=== PATIENT | female | born 1985 | race Caucasian/White ===

== ENCOUNTER → 2019-05-08 | Outpatient (CLI) | payer OTHER ==
[2019-05-08 10:26] LABS: BASOPHIL % 0.2 % (0-2); PLATELET COUNT 201 x10^3mcL (130-400); RED CELL DISTRIBUTION WIDTH 13.3 % (11.5-14.5)
[2019-05-08 10:32] LABS: ALBUMIN 3.7 g/dL (3.4-5.0); ALKALINE PHOSPHATASE 33 U/L (46-116); ALT/SGPT 21 U/L (14-59); AST/SGOT 10 U/L (15-37); BILIRUBIN TOTAL 0.4 mg/dL (0.20-1.00); CALCIUM 8.6 mg/dL (8.5-10.1); CARBON DIOXIDE 25.5 mmol/L (21-32); CHLORIDE SERUM 106 mmol/L (98-107); CHOLESTEROL 189 mg/dL (<200); CHOLESTEROL/HDL RATIO 3.1; CREATININE SERUM 0.7 mg/dL (0.6-1.0); FREE T4 1.01 ng/dL (0.76-1.46); GFR1 > 60 mL/min; GLUCOSE SERUM 92 mg/dL (74-106); HDL CHOLESTEROL 61 mg/dL (40-60); POTASSIUM SERUM 4.3 mmol/L (3.5-5.1); SODIUM SERUM 139 mmol/L (136-145); TOTAL PROTEIN, SERUM 6.9 g/dL (6.4-8.2); TRIGLYCERIDES 71 mg/dL (<150)
[2019-05-08 11:03] LABS: UA SPECIFIC GRAVITY 1.015 (1.005-1.035); microscopic required? YES; urine erythrocyte NEGATIVE (NEGATIVE)
== END | disposition home or self-care (01) ==
LOC: LB 09:45
PROVIDERS: Obstetrics & Gynecology
DX: Z00.00 Encounter for general adult medical examination without abnormal findings (principal); Z87.59 Personal history of other complications of pregnancy, childbirth and the puerperium
CPT/HCPCS: 84439

== ENCOUNTER 2019-07-24 15:21 | Emergency (ER) | payer OTHER, SELFPAY ==
[~2019-07-24] VITALS: Ht 162.6 cm; Wt 63.5 kg
[2019-07-24 15:40] VITALS: BP 114/72
== END 2019-07-24 16:52 | disposition home or self-care (01) ==
LOC: ED 15:21
DX: O99.512 Diseases of the respiratory system complicating pregnancy, second trimester (principal); R05 Cough; Z3A.14 14 weeks gestation of pregnancy; Z20.828 Contact with and (suspected) exposure to other viral communicable diseases

== ENCOUNTER → 2019-08-08 | Outpatient (CLI) | payer OTHER ==
[2019-08-08 08:53] LABS: BASOPHIL % 0.3 % (0-2); PLATELET COUNT 215 x10^3mcL (130-400); RED CELL DISTRIBUTION WIDTH 14.1 % (11.5-14.5)
[2019-08-09 04:06] LABS: RAPID PLASMA REAGIN Non Reactive (Non Reactive)
== END | disposition home or self-care (01) ==
LOC: LB 08:00
DX: Z33.1 Pregnant state, incidental (principal)
CPT/HCPCS: 87491; 87591

== ENCOUNTER → 2019-10-24 | Outpatient (CLI) | payer OTHER | END | disposition home or self-care (01) | LOC: LB 11:59 | PROVIDERS: ATTEND Obstetrics & Gynecology | DX: Z36.9 Encounter for antenatal screening, unspecified (principal) ==